=== PATIENT | male | born 1990 | race American Indian/Alaskan Native ===

== ENCOUNTER 2022-03-06 06:21 | Inpatient (IN) | payer SELFPAY ==
[2022-03-06] MEDS ORDERED: SODIUM CHLORIDE 0.9% 1000 ML 1,000 ML IV ONE (07:22)
--- NOTE | 2022-03-06 07:40 | Emergency Department Report ---
- General Chief complaint: Extremity Injury, Lower Stated complaint: GENERALIZED WEAKNESS Time Seen by Provider: 03/06/22 07:09 Source: patient Mode of arrival: Stretcher Limitations: Physical Limitation - History of Present Illness Initial comments: 31-year-old male with no significant past medical history presents to the hospital complaining of lower extremity weakness since yesterday. Patient's symptoms started yesterday afternoon. While ambulating at the gas station his l egs gave out on him and he fell to the ground. He is unable to get off the ground without assistance at the time. He describes weakness and discomfort in his thighs and feel like the muscle is fatigue, worn out, and weak. Patient was then assisted into his vehicle and driven home by his girlfriend. He fell again getting out of the car and required EMT assistance into the house. ENT advised that he might be dehydrated therefore patient drink plenty of water and elected not to come to the hospital at that time. Upon waking up this morning symptoms have continued and he is unable to ambulate without assistance. He also reports that he is having upper extremity weakness at this time as well. He denies numbness, paresthesias, pain, trauma, back pain, neck pain, fever, recent vaccinations (unvaccinated for COVID), and urinary incontinence, fecal incontinence, alcohol or drug abuse. He also denies excessive exercising or heat exposure. Severity scale (0 -10): 0 - Related Data Allergies Allergy/AdvReac Type Severity Reaction Status Date / Time No Known Allergies Allergy Verified 03/06/22 06:59 ED Review of Systems ROS: Stated complaint: GENERALIZED WEAKNESS Other details as noted in HPI Comment: All other systems reviewed and negative ED Past Medical Hx - Past Medical History Previous Medical History?: No - Surgical History Past Surgical History?: No - Social History Smoking Status: Never Smoker Substance Use Type: None ED Physical Exam - General Limitations: Physical Limitation - Other Other exam information: General: No acute distress Head: Atraumatic Eyes: normal appearance ENT: Moist mucous membranes Neck: Normal appearance, no midline tenderness Chest: Clear to auscultation bilaterally CV: Regular rate and rhythm Abdomen: Soft, normal bowel sounds, nontender, nondistended, no rebound or guarding Back: Normal inspection Extremity: Normal inspection, mild tenderness to anterior thigh muscles Neuro: Alert O x 3, no facial asymmetry, speech clear, patient appears to have proximal muscle weakness on examination. Positive bilateral upper extremity drift with extension of arms with no resistance to opposition. Patient appears to have good strength with flexion at the elbow and wrist bilaterally. Patient has strong and equal foot dorsiflexion but cannot flex hip off the bed and has difficulty flexing at the knee bilaterally. Patient cannot sit up off the back of the bed even in a flexed torso position due to weakness. 2+ bilateral knee jerk reflexes, sensation grossly intact and equal bilaterally Psych: Appropriate behavior Skin: No rash ED Course Vital Signs 03/06/22 07:07 Temperature 98.4 F Pulse Rate 100 H Respiratory 18 Rate Blood Pressure 155/87 O2 Sat by Pulse 99 Oximetry - Consultations Consultation #1: 03/06/22 08:41 Labs have resulted. Patient's hyperkalemia, elevated CK and hyperthyroidism. Case discussed with neurology to to discuss any additional recommended. She suggests that weakness should improve quickly with improvement in potassium. She will eval patient and place note ED Medical Decision Making - Lab Data Result diagrams: 03/06/22 07:35 03/06/22 07:35 Lab Results 03/06/22 03/06/22 03/06/22 Range/Units 07:35 07:35 07:35 WBC 8.9 (4.5-11.0) K/mm3 RBC 5.51 H (3.65-5.03) M/mm3 Hgb 13.6 (11.8-15.2) gm/dl Hct 42.2 (35.5-45.6) % MCV 77 L (84-94) fl MCH 25 L (28-32) pg MCHC 32 (32-34) % RDW 14.0 (13.2-15.2) % Plt Count 250 (140-440) K/mm3 Lymph % (Auto) 30.1 (13.4-35.0) % [place] % (Auto) 7.7 H (0.0-7.3) % Eos % (Auto) 9.4 H (0.0-4.3) % Baso % (Auto) 0.5 (0.0-1.8) % Lymph # (Auto) 2.7 (1.2-5.4) K/mm3 [place] # (Auto) 0.7 (0.0-0.8) K/mm3 Eos # (Auto) 0.8 H (0.0-0.4) K/mm3 Baso # (Auto) 0.0 (0.0-0.1) K/mm3 Seg Neutrophils % 52.3 (40.0-70.0) % Seg Neutrophils # 4.6 (1.8-7.7) K/mm3 Sodium 140 (137-145) mmol/L Potassium 2.0 L* (3.6-5.0) mmol/L Chloride 103.0 (98-107) mmol/L Carbon Dioxide 27 (22-30) mmol/L Anion Gap 12 mmol/L BUN 7 L (9-20) mg/dL Creatinine 0.4 L (0.8-1.3) mg/dL Estimated GFR > 60 ml/min BUN/Creatinine Ratio 18 % Glucose 131 H (75-100) mg/dL Calcium 9.7 (8.4-10.2) mg/dL Phosphorus (2.5-4.5) mg/dL Magnesium 1.70 (1.7-2.3) mg/dL Total Bilirubin 0.30 (0.1-1.2) mg/dL AST 42 H (5-40) units/L ALT 45 (7-56) units/L Alkaline Phosphatase 133 H (35-129) units/L Total Creatine Kinase 1682 H (55-170) units/L CK-MB (CK-2) 3.8 (0.0-4.0) ng/mL CK-MB (CK-2) Rel Index 0.2 (0-4) Total Protein 6.6 (6.3-8.2) g/dL Albumin 3.7 L (3.9-5) g/dL Albumin/Globulin Ratio 1.3 % TSH < 0.005 L (0.270-4.200) mlU/mL Free T4 6.72 H (0.76-1.46) ng/dL Urine Bilirubin (Negative) Urine RBC (Auto) (0.0-6.0) /HPF U Epithel Cells (Auto) (0-13.0) /HPF Urine Opiates Screen Urine Methadone Screen Ur Barbiturates Screen Ur Phencyclidine Scrn Ur Amphetamines Screen U Benzodiazepines Scrn Urine Cocaine Screen U Marijuana (THC) Screen Drugs of Abuse Note 03/06/22 03/06/22 03/06/22 Range/Units 07:35 Unknown Unknown WBC (4.5-11.0) K/mm3 RBC (3.65-5.03) M/mm3 Hgb (11.8-15.2) gm/dl Hct (35.5-45.6) % MCV (84-94) fl MCH (28-32) pg MCHC (32-34) % RDW (13.2-15.2) % Plt Count (140-440) K/mm3 Lymph % (Auto) (13.4-35.0) % [place] % (Auto) (0.0-7.3) % Eos % (Auto) (0.0-4.3) % Baso % (Auto) (0.0-1.8) % Lymph # (Auto) (1.2-5.4) K/mm3 [place] # (Auto) (0.0-0.8) K/mm3 Eos # (Auto) (0.0-0.4) K/mm3 Baso # (Auto) (0.0-0.1) K/mm3 Seg Neutrophils % (40.0-70.0) % Seg Neutrophils # (1.8-7.7) K/mm3 Sodium (137-145) mmol/L Potassium (3.6-5.0) mmol/L Chloride (98-107) mmol/L Carbon Dioxide (22-30) mmol/L Anion Gap mmol/L BUN (9-20) mg/dL Creatinine (0.8-1.3) mg/dL Estimated GFR ml/min BUN/Creatinine Ratio % Glucose (75-100) mg/dL Calcium (8.4-10.2) mg/dL Phosphorus 2.60 (2.5-4.5) mg/dL Magnesium (1.7-2.3) mg/dL Total Bilirubin (0.1-1.2) mg/dL AST (5-40) units/L ALT (7-56) units/L Alkaline Phosphatase (35-129) units/L Total Creatine Kinase (55-170) units/L CK-MB (CK-2) (0.0-4.0) ng/mL CK-MB (CK-2) Rel Index (0-4) Total Protein (6.3-8.2) g/dL Albumin (3.9-5) g/dL Albumin/Globulin Ratio % TSH (0.270-4.200) mlU/mL Free T4 (0.76-1.46) ng/dL Urine Bilirubin Neg (Negative) Urine RBC (Auto) 1.0 (0.0-6.0) /HPF U Epithel Cells (Auto) < 1.0 (0-13.0) /HPF Urine Opiates Screen Presumptive negative Urine Methadone Screen Presumptive negative Ur Barbiturates Screen Presumptive negative Ur Phencyclidine Scrn Presumptive negative Ur Amphetamines Screen Presumptive negative U Benzodiazepines Scrn Presumptive negative Urine Cocaine Screen Presumptive negative U Marijuana (THC) Screen Presumptive positive Drugs of Abuse Note Disclamer - EKG Data -: EKG Interpreted by Hi EKG shows normal: sinus rhythm, intervals (qtc 445), QRS complexes (qrsd 89), ST-T waves (no stemi) Rate: tachycardia (103) - Medical Decision Making 31-year-old male with no significant past medical history presents to the hospital proximal muscle weakness legs greater than arms since yesterday. Labs reviewed significant hypokalemia and elevated CK. Potassium supplementation initiated in the ED. IV fluid hydration initiated in ED. Neurology consulted in the ED. Patient will require hospitalization for further treatment and evaluation. Patient states he did have a history of hyperkalemia in the past but denies previous hypokalemia Critical Care Time: No Critical care attestation.: If time is entered above; I have spent that time in minutes in the direct care of this critically ill patient, excluding procedure time. ED Disposition Clinical Impression: Proximal muscle weakness, Hypokalemia, Rhabdomyolysis, Hyperthyroidism Disposition: ADMITTED INPATIENT Is pt being admited?: Yes Condition: Stable Time of Disposition: 08:56 (anthony/hosptialist)
[2022-03-06 07:54] LABS: Bilirubin,Urine NEG (Negative); Blood,Urine NEG (Negative); Color,Urine Yellow (Yellow); Protein,Urine <15 mg/dL mg/dL (Negative); Urobilinogen,Urine < 2.0 mg/dL (<2.0)
[2022-03-06 07:56] LABS: WBC,Urine < 1.0 /HPF (0.0-6.0)
[2022-03-06 08:02] LABS: Basophils % (Auto) 0.5 % (0.0-1.8); Eosinophils # (Auto) 0.8 K/mm3 (0.0-0.4); Eosinophils % (Auto) 9.4 % (0.0-4.3); Hematocrit 42.2 % (35.5-45.6); Hemoglobin 13.6 gm/dl (11.8-15.2); Lymphocytes # (Auto) 2.7 K/mm3 (1.2-5.4); Lymphocytes % (Auto) 30.1 % (13.4-35.0); Mean Corpuscular HGB Conc 32 % (32-34); Mean Corpuscular Volume 77 fl (84-94); Monocytes # (Auto) 0.7 K/mm3 (0.0-0.8); Monocytes % (Auto) 7.7 % (0.0-7.3); Platelet Count 250 K/mm3 (140-440); Red Blood Count 5.51 M/mm3 (3.65-5.03)
[2022-03-06 08:03] LABS: Amphetamine Screen,Urine PRESUMPTIVE NEGATIVE; Benzodiazepines Screen,Urine PRESUMPTIVE NEGATIVE; Cannabinoid Screen,Urine PRESUMPTIVE POSITIVE; Cocaine Screen,Urine PRESUMPTIVE NEGATIVE; Methadone Screen,Urine PRESUMPTIVE NEGATIVE; Opiate Screen,Urine PRESUMPTIVE NEGATIVE
[2022-03-06 08:32] LABS: Alanine Aminotransferase 45 units/L (7-56); Albumin 3.7 g/dL (3.9-5); BUN/Creatinine Ratio 18; Blood Urea Nitrogen 7 mg/dL (9-20); Calcium 9.7 mg/dL (8.4-10.2); Creatine Kinase MB 3.8 ng/mL (0.0-4.0); Hemolysis Index 1
[2022-03-06] MEDS ORDERED: POTASSIUM CHLORIDE 10 MEQ 10 MEQ/100 ML BAG IV ONE (08:34)
[2022-03-06] MEDS ORDERED: POTASSIUM CHLORIDE ER 20 MEQ TAB PO ONE ×2 (08:34→12:03)
[2022-03-06 08:39] LABS: Free T4 (Free Thyroxine) 6.72 ng/dL (0.76-1.46)
[2022-03-06] MEDS ORDERED: POTASSIUM CHLORIDE ER 10 MEQ TAB PO ONE (08:39)
[2022-03-06] MEDS ORDERED: ONDANSETRON 4 MG/2 ML INJ IV PRN (08:57)
[2022-03-06] MEDS ORDERED: ACETAMINOPHEN 325 MG TAB PO PRN (08:57)
[2022-03-06] MEDS ORDERED: MORPHINE 2 MG/1 ML INJ IV PRN (09:08)
--- NOTE | 2022-03-06 10:53 | Electrocardiograph Report ---
[facility] Test Date: 2022-03-06 Test Time: 08:57:50 Pat Name: DULCE MARIA WINSTON [place] Department: Room: [facility] Gender: M [employer]: LUCHO : 1990 Requested By: PAT CLIFTON Order Number: [id number] Reading MD: Shane Villatoro Measurements Intervals [place] Rate: 103 P: -32 MI: 138 QRS: 16 QRSD: 89 T: 210 QT: 340 QTc: 445 Interpretive Statements Sinus tachycardia septal infarct, old T wave abnormality, consider inferolateral ischemia No previous ECG available for comparison Electronically Signed On 03-06-2022 10:53:07 EDT by Shane Villatoro
--- NOTE | 2022-03-06 12:00 | History and Physical Report ---
History of Present Illness Date of examination: 03/06/22 Date of admission: 03/06/22 08:57 Chief complaint: Generalized weakness and fall History of present illness: Very pleasant 31-year-old male patient with no significant past medical history not on any medications presented to the hospital with complaints of sudden weakness in the lower extremities and discomfort in the thighs and patient's legs gave out and fell at the gas station. Patient was taking home by his girlfriend and reports that he fell again at home, complains of severe weakness in the Muscle cramps, presented to the emergency room initial work-up is consistent with severe hypokalemia, rhabdomyolysis With extreme weakness of lower extremities, as well as abnormal thyroid function tests consistent with hyperthyroidism. Patient denies any chest pain or shortness of breath denies palpitation Past History Past Medical History: No medical history Past Surgical History: No surgical history Social history: denies: smoking, alcohol abuse, prescription drug abuse Family history: denies: no significant family history Medications and Allergies Allergies Allergy/AdvReac Type Severity Reaction Status Date / Time No Known Allergies Allergy Verified 03/06/22 06:59 Active Meds: Active Medications Acetaminophen (Acetaminophen 325 Mg Tab) 650 mg PO Q4H PRN PRN Reason: Pain MILD(1-3)/Fever >100.5/PÉREZ Morphine Sulfate (Morphine 2 Mg/1 Ml Inj) 2 mg IV Q4H PRN PRN Reason: Pain, Moderate (4-6) Ondansetron HCl (Ondansetron 4 Mg/2 Ml Inj) 4 mg IV Q8H PRN PRN Reason: Nausea And Vomiting Sodium Chloride (Sodium Chloride 0.9% 10 Ml Flush Syringe) 10 ml IV BID MALORIE Last Admin: 03/06/22 10:39 Dose: 10 ml Sodium Chloride (Sodium Chloride 0.9% 10 Ml Flush Syringe) 10 ml IV PRN PRN PRN Reason: LINE FLUSH Review of Systems Constitutional: fatigue, weakness, no weight loss, no weight gain, no fever, no chills Ears, nose, mouth and throat: no nasal congestion, no nasal discharge Cardiovascular: palpitations, other (Tachycardia), no chest pain, no orthopnea Respiratory: no cough, no shortness of breath Gastrointestinal: no nausea, no vomiting, no diarrhea, no constipation Genitourinary Male: no dysuria, no hematuria Musculoskeletal: myalgias, other (Muscle cramps) Integumentary: no rash, no lesions Neurological: weakness, parathesias, no seizures, no syncope Psychiatric: no anxiety, no depression Endocrine: no cold intolerance, no heat intolerance Hematologic/Lymphatic: no easy bruising, no easy bleeding Allergic/Immunologic: no urticaria, no allergic rhinitis Exam - Constitutional Vitals: Temp Pulse Resp BP Pulse Ox 98.4 F 104 H 18 166/77 99 03/06/22 07:07 03/06/22 09:38 03/06/22 07:07 03/06/22 09:38 03/06/22 09:38 General appearance: Present: mild distress, well-nourished, other (Slightly agitated) - EENT Eyes: Present: PERRL, EOM intact - Neck Neck: Present: supple, normal ROM - Respiratory Respiratory effort: normal Respiratory: bilateral: diminished, negative: rales, rhonchi, wheezing - Cardiovascular Rhythm: regular Heart Sounds: Present: S1 & S2 (Sinus tachycardia) - Extremities Extremities: no ischemia, No edema - Abdominal General gastrointestinal: Present: soft, non-tender, non-distended, normal bowel sounds - Integumentary Integumentary: Present: clear, warm - Musculoskeletal Musculoskeletal: generalized weakness, other (Bilateral lower extremity weakness) - Psychiatric Psychiatric: appropriate mood/affect, cooperative - Neurologic Neurologic: moves all extremities Results - Labs CBC & Chem 7: 03/06/22 07:35 03/06/22 15:06 Labs: Abnormal lab results 03/06/22 03/06/22 03/06/22 Range/Units 07:35 07:35 07:35 RBC 5.51 H (3.65-5.03) M/mm3 MCV 77 L (84-94) fl MCH 25 L (28-32) pg [place] % (Auto) 7.7 H (0.0-7.3) % Eos % (Auto) 9.4 H (0.0-4.3) % Eos # (Auto) 0.8 H (0.0-0.4) K/mm3 Potassium 2.0 L* (3.6-5.0) mmol/L BUN 7 L (9-20) mg/dL Creatinine 0.4 L (0.8-1.3) mg/dL Glucose 131 H (75-100) mg/dL AST 42 H (5-40) units/L Alkaline Phosphatase 133 H (35-129) units/L Total Creatine Kinase 1682 H (55-170) units/L Albumin 3.7 L (3.9-5) g/dL TSH < 0.005 L (0.270-4.200) mlU/mL Free T4 6.72 H (0.76-1.46) ng/dL Assessment and Plan -- Severe hypokalemia; potassium 2.0 Replenished with IV and p.o. KCl Check magnesium levels Closely monitor -- Rhabdomyolysis; Vigorous IV hydration, input output monitoring Plenty of oral fluids -- Abnormal thyroid function tests; Consistent with hyperthyroidism; Repeat thyroid function tests to confirm And start methimazole as needed -- Myalgia; correct underlying electrolyte imbalances Correct underlying hypothyroidism with methimazole Propranolol and supportive care --Sinus tachycardia; due to hyperthyroidism Propranolol closely monitor -- Severe hyperthyroidism; Initiated methimazole and supportive care Closely monitor --DVT prophylaxis; Subcu Lovenox -- GI prophylaxis; Pepcid Closely monitor the patient and adjust management as needed Plan of care reviewed with the patient and the nurse
--- NOTE | 2022-03-06 13:01 | Consultation ---
History of Present Illness - History of Present Illness [facility] Consult Note # Demographics Consult Type: General Neurology Patient Location: Emergency Room First Name: marilu Last Name: Date of : 1990 Age: 31 Gender: Male Facility: [facility] Time of Initial Page (Eastern Time): 03/06/2022, 08:38 Time of Return Call (Eastern Time): 03/06/2022, 08:38 # HPI History: 31 year old male comes in complaining of proximal muscle weakness in arms and legs. Pt states it wasnt getting worse but he was having trouble walking. This has not happened before. Denies family members have had this issue. Notes mild tenderness on palpation and movement of the arms and legs. Denies numbness, urinary/bowel issues or respiratory concerns. # Exam Mental Status: alert and oriented x 3 Language: normal speech Cranial Nerves: no facial droop no dysarthria Motor: unable to lift arms above head, unable to bend legs at knee of lift off bed. Can move legs side to side and wiggle toes Sensory: denies any dec in sensation # PMH-FH-SH Past Medical History: denies Social History: non-smoker non-drinker no drugs lives independently Medications: denies # Assessment Impression: 31 year old male with no hx presents with proximal muscle weakness in arms and legs. No other concerns. No respiratory issues. Noted to have Potassium of 2 . Thyroid mildly low. No family hx and denies this happening before. Likely secondary to low potassium. If pts symptoms not improved with supplement then will need in-patient neurology consult for more thorough assessment. # Plan Labs: CBC comprehensive metabolic panel ESR TSH urine drug screen ua Other: consult on-site neurology service for full work-up and evaluation recommendations If patient has any neurological deterioration please call me back immediately telemetry monitoring I have discussed my recommendations with the referring provider Past History Past Medical History: No medical history Past Surgical History: No surgical history Social history: denies: smoking, alcohol abuse, prescription drug abuse Family history: denies: no significant family history Medications and Allergies Allergies Allergy/AdvReac Type Severity Reaction Status Date / Time No Known Allergies Allergy Verified 03/06/22 06:59 Active Meds: Active Medications Acetaminophen (Acetaminophen 325 Mg Tab) 650 mg PO Q4H PRN PRN Reason: Pain MILD(1-3)/Fever >100.5/PÉREZ Sodium Chloride (Nacl 0.9% 1000 Ml) 1,000 mls @ 125 mls/hr IV DIRECT MALORIE Morphine Sulfate (Morphine 2 Mg/1 Ml Inj) 2 mg IV Q4H PRN PRN Reason: Pain, Moderate (4-6) Ondansetron HCl (Ondansetron 4 Mg/2 Ml Inj) 4 mg IV Q8H PRN PRN Reason: Nausea And Vomiting Sodium Chloride (Sodium Chloride 0.9% 10 Ml Flush Syringe) 10 ml IV BID MALORIE Last Admin: 03/06/22 10:39 Dose: 10 ml Sodium Chloride (Sodium Chloride 0.9% 10 Ml Flush Syringe) 10 ml IV PRN PRN PRN Reason: LINE FLUSH Exam - Constitutional Vitals: Temp Pulse Resp BP Pulse Ox 98.4 F 104 H 18 166/77 99 03/06/22 07:07 03/06/22 09:38 03/06/22 07:07 03/06/22 09:38 03/06/22 09:38 Results - Labs CBC & Chem 7: 03/06/22 07:35 03/06/22 07:35 Labs: Abnormal lab results 03/06/22 03/06/22 03/06/22 Range/Units 07:35 07:35 07:35 RBC 5.51 H (3.65-5.03) M/mm3 MCV 77 L (84-94) fl MCH 25 L (28-32) pg [place] % (Auto) 7.7 H (0.0-7.3) % Eos % (Auto) 9.4 H (0.0-4.3) % Eos # (Auto) 0.8 H (0.0-0.4) K/mm3 Potassium 2.0 L* (3.6-5.0) mmol/L BUN 7 L (9-20) mg/dL Creatinine 0.4 L (0.8-1.3) mg/dL Glucose 131 H (75-100) mg/dL AST 42 H (5-40) units/L Alkaline Phosphatase 133 H (35-129) units/L Total Creatine Kinase 1682 H (55-170) units/L Albumin 3.7 L (3.9-5) g/dL TSH < 0.005 L (0.270-4.200) mlU/mL Free T4 6.72 H (0.76-1.46) ng/dL
[2022-03-06 15:43] LABS: Free T4 (Free Thyroxine) 7.55 ng/dL (0.76-1.46)
[2022-03-06] MEDS ORDERED: MAGNESIUM SULFATE 2 GM/50 ML BAG IV ONE (15:47)
[2022-03-06] MEDS: SODIUM CHLORIDE 0.9% 1000 ML 1,000 ML IV SCH (17:17)
[2022-03-06] MEDS: PROPRANOLOL 10 MG TAB PO SCH (21:04)
[2022-03-06] MEDS: ENOXAPARIN 40 MG/0.4 ML INJ SUB-Q SCH (21:04)
[2022-03-06] MEDS: methIMAzole 5 MG TAB PO SCH ×2 (21:04→22:12)
[2022-03-07] MEDS: methIMAzole 5 MG TAB PO SCH ×4 (05:12→21:32)
[2022-03-07 05:30] LABS: Alanine Aminotransferase 41 units/L (7-56); Albumin 3.3 g/dL (3.9-5); Blood Urea Nitrogen 6 mg/dL (9-20); Calcium 9.3 mg/dL (8.4-10.2); Hemolysis Index 100
[2022-03-07 05:31] LABS: BUN/Creatinine Ratio 20
[2022-03-07] MEDS: SODIUM CHLORIDE 0.9% 1000 ML 1,000 ML IV SCH ×2 (09:39→21:33)
[2022-03-07] MEDS: PROPRANOLOL 10 MG TAB PO SCH ×2 (09:40→22:33)
--- NOTE | 2022-03-07 10:12 | Progress Note ---
Assessment and Plan Assessment and plan: -- Severe hypokalemia; potassium 2.0 Replenished with IV and p.o. KCl Check magnesium levels Closely monitor -- Rhabdomyolysis; Vigorous IV hydration, input output monitoring Plenty of oral fluids -- Abnormal thyroid function tests; Consistent with hyperthyroidism; Repeat thyroid function tests to confirm And start methimazole as needed -- Myalgia; correct underlying electrolyte imbalances Correct underlying hypothyroidism with methimazole Propranolol and supportive care --Sinus tachycardia; due to hyperthyroidism Propranolol closely monitor -- Severe hyperthyroidism; Initiated methimazole and supportive care Closely monitor --DVT prophylaxis; Subcu Lovenox -- GI prophylaxis; Pepcid Closely monitor the patient and adjust management as needed Plan of care reviewed with the patient and the nurse Patient was admitted with generalized body Muscle cramps, weakness in the lower extremity and fall Noted to have severe hypokalemia, rhabdomyolysis, and severe hypothyroidism. Symptoms gradually but significantly improved, CK levels trending down, electrolyte improved Follow PT evaluation, thyroid function tests, follow electrolytes Disposition; discharge when medically stable History Interval history: Seen and examined the patient at the bedside Patient's chart and medications reviewed Patient feels slightly better no new complaints Patient's muscular cramps improved Vital signs reviewed Hospitalist Physical - Constitutional Vitals: Temp Pulse Resp BP Pulse Ox 98.6 F 107 H 16 154/79 100 03/07/22 09:33 03/07/22 09:40 03/07/22 09:33 03/07/22 09:33 03/07/22 09:33 General appearance: Present: no acute distress, well-nourished - EENT Eyes: Present: PERRL, EOM intact - Neck Neck: Present: supple, normal ROM - Respiratory Respiratory effort: normal Respiratory: bilateral: diminished, negative: rales, rhonchi, wheezing - Cardiovascular Rhythm: regular Heart Sounds: Present: S1 & S2 - Extremities Extremities: no ischemia, No edema - Abdominal General gastrointestinal: soft, non-tender, non-distended, normal bowel sounds - Integumentary Integumentary: Present: clear, warm - Psychiatric Psychiatric: appropriate mood/affect, cooperative - Neurologic Neurologic: CNII-XII intact, moves all extremities Results - Labs CBC & Chem 7: 03/06/22 07:35 03/07/22 04:31 Labs: Laboratory Last Values WBC 8.9 K/mm3 (4.5-11.0) 03/06/22 07:35 RBC 5.51 M/mm3 (3.65-5.03) H 03/06/22 07:35 Hgb 13.6 gm/dl (11.8-15.2) 03/06/22 07:35 Hct 42.2 % (35.5-45.6) 03/06/22 07:35 MCV 77 fl (84-94) L 03/06/22 07:35 MCH 25 pg (28-32) L 03/06/22 07:35 MCHC 32 % (32-34) 03/06/22 07:35 RDW 14.0 % (13.2-15.2) 03/06/22 07:35 Plt Count 250 K/mm3 (140-440) 03/06/22 07:35 Lymph % (Auto) 30.1 % (13.4-35.0) 03/06/22 07:35 [place] % (Auto) 7.7 % (0.0-7.3) H 03/06/22 07:35 Eos % (Auto) 9.4 % (0.0-4.3) H 03/06/22 07:35 Baso % (Auto) 0.5 % (0.0-1.8) 03/06/22 07:35 Lymph # (Auto) 2.7 K/mm3 (1.2-5.4) 03/06/22 07:35 [place] # (Auto) 0.7 K/mm3 (0.0-0.8) 03/06/22 07:35 Eos # (Auto) 0.8 K/mm3 (0.0-0.4) H 03/06/22 07:35 Baso # (Auto) 0.0 K/mm3 (0.0-0.1) 03/06/22 07:35 Seg Neutrophils % 52.3 % (40.0-70.0) 03/06/22 07:35 Seg Neutrophils # 4.6 K/mm3 (1.8-7.7) 03/06/22 07:35 Sodium 140 mmol/L (137-145) 03/07/22 04:31 Potassium 4.9 mmol/L (3.6-5.0) D 03/07/22 04:31 Chloride 103.9 mmol/L (98-107) 03/07/22 04:31 Carbon Dioxide 27 mmol/L (22-30) 03/07/22 04:31 Anion Gap 14 mmol/L 03/07/22 04:31 BUN 6 mg/dL (9-20) L 03/07/22 04:31 Creatinine 0.3 mg/dL (0.8-1.3) L 03/07/22 04:31 Estimated GFR > 60 ml/min 03/07/22 04:31 BUN/Creatinine Ratio 20 % 03/07/22 04:31 Glucose 90 mg/dL (75-100) 03/07/22 04:31 Calcium 9.3 mg/dL (8.4-10.2) 03/07/22 04:31 Phosphorus 6.20 mg/dL (2.5-4.5) H D 03/07/22 04:31 Magnesium 1.80 mg/dL (1.7-2.3) 03/07/22 04:31 Total Bilirubin 0.40 mg/dL (0.1-1.2) 03/07/22 04:31 AST 42 units/L (5-40) H 03/07/22 04:31 ALT 41 units/L (7-56) 03/07/22 04:31 Alkaline Phosphatase 112 units/L (35-129) 03/07/22 04:31 Total Creatine Kinase 1682 units/L (55-170) H 03/06/22 07:35 CK-MB (CK-2) 3.8 ng/mL (0.0-4.0) 03/06/22 07:35 CK-MB (CK-2) Rel Index 0.2 (0-4) 03/06/22 07:35 Total Protein 6.0 g/dL (6.3-8.2) L 03/07/22 04:31 Albumin 3.3 g/dL (3.9-5) L 03/07/22 04:31 Albumin/Globulin Ratio 1.2 % 03/07/22 04:31 TSH < 0.005 mlU/mL (0.270-4.200) L 03/06/22 15:06 Free T4 7.55 ng/dL (0.76-1.46) H 03/06/22 15:06 Urine Color Yellow (Yellow) 03/06/22 Unknown Urine Turbidity Clear (Clear) 03/06/22 Unknown Urine pH 6.0 (5.0-7.0) 03/06/22 Unknown Ur Specific [place] 1.010 (1.003-1.030) 03/06/22 Unknown Urine Protein <15 mg/dl mg/dL (Negative) 03/06/22 Unknown Urine Glucose (UA) Neg mg/dL (Negative) 03/06/22 Unknown Urine Ketones Neg mg/dL (Negative) 03/06/22 Unknown Urine Blood Neg (Negative) 03/06/22 Unknown Urine Nitrite Neg (Negative) 03/06/22 Unknown Urine Bilirubin Neg (Negative) 03/06/22 Unknown Urine Urobilinogen < 2.0 mg/dL (<2.0) 03/06/22 Unknown Ur Leukocyte Esterase Neg (Negative) 03/06/22 Unknown Urine WBC (Auto) < 1.0 /HPF (0.0-6.0) 03/06/22 Unknown Urine RBC (Auto) 1.0 /HPF (0.0-6.0) 03/06/22 Unknown U Epithel Cells (Auto) < 1.0 /HPF (0-13.0) 03/06/22 Unknown Urine Opiates Screen Presumptive negative 03/06/22 Unknown Urine Methadone Screen Presumptive negative 03/06/22 Unknown Ur Barbiturates Screen Presumptive negative 03/06/22 Unknown Ur Phencyclidine Scrn Presumptive negative 03/06/22 Unknown Ur Amphetamines Screen Presumptive negative 03/06/22 Unknown U Benzodiazepines Scrn Presumptive negative 03/06/22 Unknown Urine Cocaine Screen Presumptive negative 03/06/22 Unknown U Marijuana (THC) Screen Presumptive positive 03/06/22 Unknown Drugs of Abuse Note Disclamer 03/06/22 Unknown Ramos/IV: Voiding Method Urinal Active Medications - Current Medications Current Medications: Generic Name Dose Route Start Last Admin Trade Name Freq PRN Reason Stop Dose Admin Acetaminophen 650 mg 03/06/22 08:57 Acetaminophen 325 Mg Tab PO Q4H PRN Pain MILD(1-3)/Fever >100.5/PÉREZ Enoxaparin Sodium 40 mg 03/06/22 22:00 03/06/22 21:04 Enoxaparin 40 Mg/0.4 Ml Inj SUB-Q 40 mg QDAY@2200 MALORIE Administration Protocol Sodium Chloride 1,000 mls @ 125 mls/hr 03/06/22 12:15 03/07/22 09:39 Nacl 0.9% 1000 Ml IV 125 mls/hr DIRECT MALORIE Administration Methimazole 5 mg 03/06/22 16:00 03/07/22 05:13 Methimazole 5 Mg Tab PO 5 mg Q8HR MALORIE Administration Morphine Sulfate 2 mg 03/06/22 09:08 Morphine 2 Mg/1 Ml Inj IV Q4H PRN Pain, Moderate (4-6) Ondansetron HCl 4 mg 03/06/22 08:57 Ondansetron 4 Mg/2 Ml Inj IV Q8H PRN Nausea And Vomiting Propranolol HCl 10 mg 03/06/22 22:00 03/07/22 09:40 Propranolol 10 Mg Tab PO 10 mg Q12HR MALORIE Administration Sodium Chloride 10 ml 03/06/22 10:00 03/07/22 09:40 Sodium Chloride 0.9% 10 Ml Flush Syringe IV 10 ml BID MALORIE Administration Sodium Chloride 10 ml 03/06/22 08:57 Sodium Chloride 0.9% 10 Ml Flush Syringe IV PRN PRN LINE FLUSH
[2022-03-07] MEDS: ENOXAPARIN 40 MG/0.4 ML INJ SUB-Q SCH (21:32)
[2022-03-08] MEDS: methIMAzole 5 MG TAB PO SCH (06:21)
[2022-03-08 09:00] VITALS: BP 145/96
[2022-03-08] MEDS: SODIUM CHLORIDE 0.9% 1000 ML 1,000 ML IV SCH (10:10)
[2022-03-08] MEDS: PROPRANOLOL 10 MG TAB PO SCH (10:10)
--- NOTE | 2022-03-08 12:34 | Discharge Summary ---
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 The thyroid is enlarged with diffusely heterogeneous and hypervascular appearance suggesting thyroiditis. No suspicious thyroid nodules. 2. 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 Recommend serological correlation. Hospital course: Patient was admitted with generalized body Muscle cramps, weakness in the lower extremity and fall Noted to have severe hypokalemia, rhabdomyolysis, and severe hyperthyroidism. Symptoms gradually but significantly improved, CK levels trended down, potassium improved after replacement Thyroid function test revealed hyperthyroidism, initiated on methimazole and propanolol Obtain thyroid ultrasound and recommended to follow-up with tapper shank in 1 to 2 weeks Patient was then discharged home in stable condition with outpatient follow-up Assessment and plan: -- Severe hypokalemia; potassium 2.0 on admission Replenished with IV and p.o. KCl Check magnesium levels Closely monitor -- Rhabdomyolysis; Vigorous IV hydration, input output monitoring Plenty of oral fluids -- Abnormal thyroid function tests; Consistent with hyperthyroidism; Started on methimazole and propranolol Need further outpatient follow-up with endocrinology -- Myalgia; correct underlying electrolyte imbalances Correct underlying hypothyroidism with methimazole Propranolol and supportive care --Sinus tachycardia; due to hyperthyroidism Propranolol closely monitor --DVT prophylaxis; Subcu Lovenox -- GI prophylaxis; Pepcid Disposition: 01 HOME / SELF CARE / HOMELESS Final Discharge Diagnosis (Prints w/discharge instructions): -- Severe hypokalemia. -- Rhabdomyolysis. -- Sinus tachycardia. --Hyperthyroidism Time spent for discharge: 34 minutes Core Measure Documentation - Palliative Care Palliative Care/ Comfort Measures: Not Applicable - Core Measures Any of the following diagnoses?: none Exam - Constitutional Vitals: Temp Pulse Resp BP Pulse Ox 98.3 F 101 H 18 145/96 97 03/08/22 08:17 03/08/22 10:10 03/08/22 08:17 03/08/22 10:10 03/08/22 11:00 General appearance: Present: no acute distress, well-nourished - EENT Eyes: Present: PERRL ENT: hearing intact, clear oral mucosa - Neck Neck: Present: supple, normal ROM - Respiratory Respiratory effort: normal Respiratory: bilateral: CTA - Cardiovascular Heart Sounds: Present: S1 & S2. Absent: rub, click - Extremities Extremities: pulses symmetrical, No edema Peripheral Pulses: within normal limits - Abdominal General gastrointestinal: Present: soft, non-tender, non-distended, normal bowel sounds - Integumentary Integumentary: Present: clear, warm, dry - Musculoskeletal Musculoskeletal: gait normal, strength equal bilaterally - Psychiatric Psychiatric: appropriate mood/affect, intact judgment & insight - Neurologic Neurologic: CNII-XII intact, moves all extremities Plan Activity: advance as tolerated Weight Bearing Status: Weight Bear as Tolerated Diet: low fat, low salt Additional Instructions: f/u with endocrinology in one to two weeks Follow up with: PRIMARY CARE, [Primary Care Provider] - 7 Days Prescriptions: propranoloL [Inderal] 10 mg PO Q12HR #60 tablet methIMAzole [Tapazole] 5 mg PO Q8HR #90 tablet
--- NOTE | 2022-03-08 16:46 | Ultrasound Report ---
ULTRASOUND THYROID INDICATION / CLINICAL INFORMATION: hyperthyroid. COMPARISON: None available. FINDINGS: RIGHT LOBE: Size (cm) = 7.0 x 2.6 x 2.5 cm. LEFT LOBE: Size (cm) = 6.2 x 2.5 x 2.6 cm. ISTHMUS: Thickness (cm) = 0.9 cm. APPEARANCE: Diffusely heterogeneous and hypervascular SMALL NODULES < 1 cm: None. NODULES >= 1 cm or SUSPICIOUS FEATURES (up to 4): None. LYMPH NODES: No abnormal lymph nodes. PARATHYROID GLANDS: There is a hypoechoic nodule measuring 1.4 x 1.0 x 1.0 cm posterior inferior to t he left thyroid lobe. ADDITIONAL FINDINGS: None. IMPRESSION: 1. The thyroid is enlarged with diffusely heterogeneous and hypervascular appearance suggesting thyro iditis. No suspicious thyroid nodules. 2. Hypoechoic nodule posterior and inferior to the left thyroid lobe measuring 1.4 cm likely represen ts parathyroid adenoma. Recommend serological correlation. ACR TI-RADS Thyroid Nodule Recommendations TI-RADS 1 (0 pts) -- BENIGN. - No Fine Needle Aspirate biopsy (FNA) or follow-up. TI-RADS 2 (1-2 pts) -- NOT SUSPICIOUS. - No FNA or follow-up. TI-RADS 3 (3 pts) -- MILDLY SUSPICIOUS. - >= 2.5 cm: FNA. - 1.5-2.4 cm: Follow up at 1, 3, 5 years. - < 1.5 cm: No follow up. TI-RADS 4 (4-6 pts) -- MODERATELY SUSPICIOUS. - >= 1.5 cm: FNA. - 1.0-1.4 cm: Follow up at 1, 2, 3, 5 years. - < 1.0 cm: No follow up. TI-RADS 5 (7+ pts) -- HIGHLY SUSPICIOUS. - >= 1.0 cm: FNA. - 0.5-0.9 cm: Follow annually for 5 years. - 0.5 cm: No follow up. REFERENCE: ACR Thyroid Imaging, Reporting and Data System (TI-RADS): White Paper of the ACR TI-RADS C ommittee. J AM Kera Radiol 2017;14:587-595. NOTE: Nodules < 1 cm do not typically require follow-up or FNA unless there are suspicious features. NOTE: Nodule size maximum dimension determines whether a given lesion should be biopsied or followed. NOTE: If multiple nodules meet criteria for FNA, only the two (2) most suspicious nodules should be b iopsied. In addition, FNA of any suspicious cervical nodes should be biopsied. NOTE: Predominantly Cystic nodules and Spongiform nodules, composed predominantly (>50%) of small cys tic spaces, are considered benign (TI-RADS 1) regardless of other criteria. Scribed by: Kaitlin Rodríguez RDMS, DEONTET, JOSH Scribed: 03/08/2022 3:18 PM I have reviewed the images, agree with this report, and edited this report as needed. Signer Name: Jeronimo Brown MD Signed: 03/08/2022 4:41 PM Workstation Name: [email or web address]
== END 2022-03-08 15:30 | disposition home or self-care (01) | DRG 558 ==
LOC: ED 06:21 → 4A 08:57
PROVIDERS: ADMIT Internal Medicine; ATTEND Internal Medicine
DX: M62.82 Rhabdomyolysis (principal); E87.6 Hypokalemia; E05.90 Thyrotoxicosis, unspecified without thyrotoxic crisis or storm; R00.0 Tachycardia, unspecified
CPT/HCPCS: 36415; 76536; 80053; 80307; 81001; 82550; 82553; 83735; 84100; 84132; 84439; 84443; 85025; 93005; G0378; J1650; J3475; J3480; J7030